=== PATIENT | male | born 1955 | race Caucasian/White ===

== ENCOUNTER 2019-05-21 08:00 | Inpatient (IN) ==
[2019-05-20 19:31] LABS: Basophils # (Auto) 0.02 K/mcL (0.00-0.30); Basophils % (Auto) 0.3 % (0.0-2.0); Eosinophils # (Auto) 0.08 K/mcL (0.00-0.70); Eosinophils % (Auto) 1.3 % (0.0-7.0); Granulocytes % (Auto) 62.1 % (38.0-78.0); Hematocrit 49.3 % (40.1-51.0); Hemoglobin 16.2 g/dL (13.7-17.5); Lymphocytes % (Auto) 27.9 % (15.5-49.0); Mean Cell Volume 85.6 fL (80.0-100.0); Mean Corpuscular HGB Conc 32.9 g/dL (31.0-36.0); Mean Platelet Volume 10.4 fL (7.4-10.4); Monocytes # (Auto) 0.51 K/mcL (0.10-0.90); Monocytes % (Auto) 8.4 % (1.0-12.0); Platelet Count 263 K/mcL (140-440); RBC 5.76 M/mcL (4.63-6.08); Red Cell Distribution Width 13.6 % (11.5-14.5); WBC 6.1 K/mcL (4.50-11.00)
[2019-06-11] MEDS ORDERED: IPRATROPIUM/ALBUTEROL 3 ML AMPUL.NEB NEB PRN ×2 (05:00→10:37)
[2019-06-11] MEDS ORDERED: 0.9 % SODIUM CHLORIDE 250 ML IV SCH (05:00)
[2019-06-11] MEDS ORDERED: SCOPOLAMINE 1 PATCH PATCH TOPICAL PRN (05:00)
[2019-06-11] MEDS ORDERED: cefOXitin 2 GM VIAL IV SCH (06:00)
[2019-06-11] MEDS ORDERED: BACITRACIN 50,000 UNIT VIAL IR ONE (07:25)
[2019-06-11] MEDS ORDERED: ALBUMIN HUMAN 37.5 GM/150 ML BAG IV ONE (07:36)
[2019-06-11] MEDS ORDERED: GLYCOPYRROLATE 0.2 MG/ML VIAL IV ONE (07:40)
[2019-06-11] MEDS ORDERED: PROPOFOL 200 MG/20 ML VIAL IV ONE (07:40)
[2019-06-11] MEDS ORDERED: DEXAMETHASONE 10 MG/ML VIAL IV ONE (07:40)
[2019-06-11] MEDS ORDERED: fentaNYL 100 MCG/2 ML VIAL IV ONE (07:40)
[2019-06-11] MEDS ORDERED: ALBUMIN HUMAN 25 GM/100 ML BAG IV ONE (07:40)
[2019-06-11] MEDS ORDERED: KETAMINE 100 MG/ML ML IV ONE (07:40)
[2019-06-11] MEDS ORDERED: TRANEXAMIC ACID 1,000 MG/10 ML VIAL IV ONE (07:40)
[2019-06-11] MEDS ORDERED: ROPIVACAINE HCL/PF 30 ML VIAL IJ ONE (07:40)
[2019-06-11] MEDS ORDERED: PHENYLEPHRINE 10 MG/ML VIAL IV ONE (07:40)
[2019-06-11] MEDS ORDERED: MIDAZOLAM 2 MG/2 ML VIAL IV ONE (07:40)
[2019-06-11] MEDS ORDERED: ONDANSETRON 4 MG/2 ML VIAL IV ONE (07:40)
[2019-06-11] MEDS ORDERED: LIDOCAINE HCL/PF 100 MG/5 ML SYRINGE IV ONE (07:40)
[2019-06-11] MEDS ORDERED: ROCURONIUM 10 MG/ML ML IV ONE (07:40)
[2019-06-11] MEDS ORDERED: ONDANSETRON 4 MG/2 ML VIAL IV PRN ×2 (10:02→10:37)
[2019-06-11] MEDS ORDERED: MAGNESIUM HYDROXIDE 30 ML ORAL.SUSP PO PRN (10:02)
[2019-06-11] MEDS ORDERED: HYDROcodone/APAP 10/325MG TABLET PO PRN (10:02)
--- NOTE | 2019-06-11 10:13 | Brief Operative Note ---
Date of procedure: 06/11/19 Pre-op diagnosis: prostate cancer Post-op diagnosis: same Procedure: RRP Grafts/Implants: No Anesthesia: GLMA Findings: see note Complications: none Surgeon: Clayton Garay Roll Hauler: Markie Delong Estimated blood loss (cc): 1,000 Specimens Removed/Pathology: other (prostate) Condition: stable Disposition: PACU
[2019-06-11] MEDS ORDERED: ACETAMINOPHEN 1,000 MG/100 ML BOTTLE IV ONE (10:37)
[2019-06-11] MEDS ORDERED: MEPERIDINE 25 MG/ML SYRINGE IV PRN (10:37)
[2019-06-11] MEDS ORDERED: LORazepam 2 MG/ML VIAL IV PRN (10:37)
--- NOTE | 2019-06-11 10:38 | Operative Note ---
DATE OF OPERATION: 06/11/2019 PREOPERATIVE DIAGNOSIS: Prostate cancer. POSTOPERATIVE DIAGNOSIS: Prostate cancer. PROCEDURE: Radical retropubic prostatectomy. SURGEON: Clayton Garay M.D. INSPECTOR METAL FABRICATING: Markie Delong M.D. INDICATION: The patient is a 64-year-old gentleman with biopsy-proven adenocarcinoma. This was Darin grade 3+4. His PSA at time of diagnosis was 5.6. He presents now for radical prostatectomy. PROCEDURE: The patient was identified and consent was signed. He was given general anesthesia, placed in supine position, prepped and draped in a standard fashion. A midline incision was made using a scalpel and carried down through the fascia with electrocautery. We were able to find the linea alba and open up the suprapubic area. At this point, we began dissection on the lymph nodes. Both left and right obturator nodes were removed. Limited resection was from the bifurcation of the iliac vessels, down to the endopelvic fascia, laterally to the body wall and medially to the bladder. These did not appear to be enlarged and sent to Pathology. We were then able to identify the bladder, and a backbleeding stitch was put in the prostate, and the endopelvic fascia was taken down with electrocautery. Three stitches were placed around the dorsal venous complex, and I was pleased with the overall appearance. An incision was then made, dividing the dorsal venous complex and this carried down to the level of the prostatic urethral junction. We were then able to see the catheter after opening the anterior urethra and four stitches were placed for the anastomosis. These were 2-0 Vicryl. We then grasped the catheter, brought this up for handle, and then divided the posterior wall of the bladder. We did not develop the plane along Denonvilliers fascia and the lateral pedicles were taken down. We attempted to spare the nerves on the right side and went wide on the left side. I was pleased with the overall appearance. We then were able to identify the ampulla of the vas deferens. These were divided. We then turned attention to the anterior bladder wall. This was divided sharply with scissors and the orifices were not damaged. We then removed the rest of the specimen. This was sent to Pathology. We inspected for bleeding and there was very little. We then closed the bladder in a racket-handle fashion with a 2-0 Vicryl. We did imbricating Lembert stitches to support the anastomosis. We then placed the anastomotic stitches at the 5 and 7 o'clock positions. Using a free needle, we were able to approximate the bladder neck down to the urethra and these were tied. We did have a good anastomosis, but there was slight leakage. We inspected for bleeding. There was none. We irrigated the wound. The muscle layer was reapproximated with a 3-0 Vicryl, and the fascia was closed with a #1 PDS. Pathfork were then used to close the skin. He was awoken and taken to the recovery room in stable condition. Estimated blood loss was 1000 mL. He did not receive any transfusions. Needle and sponge count were correct. THEA:landen Job ID: [id number] Doc ID: [id number] Clayton Garay MD
[2019-06-11] MEDS ORDERED: LACTATED RINGERS 1,000 ML IV SCH (10:45)
[2019-06-11] MEDS: fentaNYL 100 MCG/2 ML VIAL IV PRN ×4 (10:53→11:11)
[2019-06-11 11:22] LABS: Basophils # (Auto) 0.05 K/mcL (0.00-0.30); Basophils % (Auto) 0.4 % (0.0-2.0); Eosinophils # (Auto) 0.03 K/mcL (0.00-0.70); Eosinophils % (Auto) 0.2 % (0.0-7.0); Granulocytes % (Auto) 81.5 % (38.0-78.0); Hematocrit 41.4 % (40.1-51.0); Hemoglobin 13.4 g/dL (13.7-17.5); Lymphocytes # (Auto) 2.03 K/mcL (1.50-4.80); Lymphocytes % (Auto) 14.7 % (15.5-49.0); Mean Cell Volume 86.3 fL (80.0-100.0); Mean Corpuscular HGB Conc 32.4 g/dL (31.0-36.0); Monocytes # (Auto) 0.44 K/mcL (0.10-0.90); Monocytes % (Auto) 3.2 % (1.0-12.0); Platelet Count 264 K/mcL (140-440); Red Cell Distribution Width 13.5 % (11.5-14.5); WBC 13.8 K/mcL (4.50-11.00)
[2019-06-11] MEDS: HYDROmorphone 2 MG/ML VIAL IV PRN ×2 (11:23→11:35)
[2019-06-11] MEDS ORDERED: HYDROmorphone 2 MG/ML VIAL ONE (11:23)
[2019-06-11] MEDS: DEXTROSE 5%-1/2NS W/20MEQ KCL 1,000 ML IV SCH ×2 (12:25→20:40)
[2019-06-11] MEDS: 0.9 % SODIUM CHLORIDE 10 ML SYRINGE IV SCH ×2 (13:19→22:33)
[2019-06-11] MEDS: cefOXitin 2 GM VIAL IV SCH ×2 (14:32→22:33)
[2019-06-11] MEDS: ACETAMINOPHEN 650 MG/65 ML BOTTLE IV SCH ×2 (16:18→22:33)
[2019-06-12] MEDS: ACETAMINOPHEN 650 MG/65 ML BOTTLE IV SCH ×3 (04:58→17:17)
[2019-06-12] MEDS: 0.9 % SODIUM CHLORIDE 10 ML SYRINGE IV SCH ×3 (04:59→21:34)
[2019-06-12 06:41] LABS: Blood Urea Nitrogen 15 mg/dl (8-23); Calcium 7.9 mg/dl (8.6-10.4); Carbon Dioxide 22 mmol/L (22-30); Glomerular Filtration Rate 49; Glucose 133 mg/dL (70-105)
[2019-06-12 06:43] LABS: Chloride 109 mmol/L (96-108)
[2019-06-12 07:01] LABS: Hematocrit 32.9 % (40.1-51.0); Hemoglobin 10.5 g/dL (13.7-17.5); Mean Cell Volume 86.8 fL (80.0-100.0); Mean Corpuscular HGB Conc 31.9 g/dL (31.0-36.0); Mean Platelet Volume 10.1 fL (7.4-10.4); Platelet Count 206 K/mcL (140-440); RBC 3.79 M/mcL (4.63-6.08); Red Cell Distribution Width 13.7 % (11.5-14.5); WBC 10.7 K/mcL (4.50-11.00)
--- NOTE | 2019-06-12 07:28 | General Surgery Progress Note ---
Subjective Patient reports: still having pain, tolerating liquids well, no flatus Narrative: Note initiated : 06/12/19 at 7:27 am Service Date, if different from initiated Date: [] Patient: Marco Tanner 64 y/o M admitted on 06/11/19 for Radical Retropubic Prostatectomy. Chief Complaint: RRP POD #1 Patient feeling well slight lightheadedness. HCT = 32. will watch. tolerating clear liquids. will ambulate and transfer to floor. Objective Temp Pulse Resp BP Pulse Ox 98.7 F 70 16 108/53 93 06/12/19 04:00 06/12/19 04:00 06/12/19 04:00 06/12/19 04:00 06/12/19 04:00 - Additional Data Intake & Output - Last 24 hours: Intake & Output 06/10/19 06/11/19 06/12/19 06/13/19 05:59 05:59 05:59 05:59 Intake Total 2388 Output Total 3720 Balance -1332 Weight 188 lb 198 lb - Labs 06/12/19 04:48 06/12/19 04:48 Diabetes panel 06/12/19 Range/Units 04:48 Sodium 140 (133-145) mmol/L Potassium 4.2 (3.3-5.1) mmol/L Chloride 109 H (96-108) mmol/L Carbon Dioxide 22 (22-30) mmol/L BUN 15 (8-23) mg/dl Creatinine 1.5 H (0.7-1.2) mg/dl Glucose 133 H (70-105) mg/dL Calcium 7.9 L (8.6-10.4) mg/dl Calcium panel 06/12/19 Range/Units 04:48 Calcium 7.9 L (8.6-10.4) mg/dl Pituitary panel 06/12/19 Range/Units 04:48 Sodium 140 (133-145) mmol/L Potassium 4.2 (3.3-5.1) mmol/L Chloride 109 H (96-108) mmol/L Carbon Dioxide 22 (22-30) mmol/L BUN 15 (8-23) mg/dl Creatinine 1.5 H (0.7-1.2) mg/dl Glucose 133 H (70-105) mg/dL Calcium 7.9 L (8.6-10.4) mg/dl Adrenal panel 06/12/19 Range/Units 04:48 Sodium 140 (133-145) mmol/L Potassium 4.2 (3.3-5.1) mmol/L Chloride 109 H (96-108) mmol/L Carbon Dioxide 22 (22-30) mmol/L BUN 15 (8-23) mg/dl Creatinine 1.5 H (0.7-1.2) mg/dl Glucose 133 H (70-105) mg/dL Calcium 7.9 L (8.6-10.4) mg/dl Assessment and Plan - Time Spent With Patient Total time spent is greater than 50% in coordination of care (as documented) at patient's floor/unit and/or counseling patient:
[2019-06-12] MEDS: cefOXitin 2 GM VIAL IV SCH (08:07)
[2019-06-12] MEDS: DEXTROSE 5%-1/2NS W/20MEQ KCL 1,000 ML IV SCH ×4 (08:07→20:01)
[2019-06-12] MEDS: amLODIPine 10 MG TABLET PO SCH (08:09)
[2019-06-12] MEDS: OLMESARTAN MEDOXOMIL 20 MG TABLET PO SCH (08:09)
[2019-06-12] MEDS: HYDROcodone/APAP 10/325MG TABLET PO PRN ×4 (08:24→22:02)
[2019-06-12] MEDS ORDERED: OLMESARTAN MEDOXOMIL 20 MG TABLET PO SCH (09:00)
[2019-06-12] MEDS ORDERED: amLODIPine 10 MG TABLET PO SCH (09:00)
[2019-06-13] MEDS: 0.9 % SODIUM CHLORIDE 10 ML SYRINGE IV SCH ×3 (05:31→20:17)
[2019-06-13] MEDS: ACETAMINOPHEN 650 MG/65 ML BOTTLE IV SCH ×2 (05:37)
[2019-06-13] MEDS: DEXTROSE 5%-1/2NS W/20MEQ KCL 1,000 ML IV SCH (05:38)
[2019-06-13 06:43] LABS: Hematocrit 32.7 % (40.1-51.0); Hemoglobin 10.6 g/dL (13.7-17.5); Mean Cell Volume 88.6 fL (80.0-100.0); Mean Corpuscular HGB Conc 32.4 g/dL (31.0-36.0); Mean Platelet Volume 9.9 fL (7.4-10.4); Platelet Count 180 K/mcL (140-440); RBC 3.69 M/mcL (4.63-6.08); Red Cell Distribution Width 13.9 % (11.5-14.5); WBC 8.1 K/mcL (4.50-11.00)
[2019-06-13 07:13] LABS: Blood Urea Nitrogen 10 mg/dl (8-23); Calcium 8.2 mg/dl (8.6-10.4); Carbon Dioxide 24 mmol/L (22-30); Chloride 108 mmol/L (96-108); Glomerular Filtration Rate 64; Glucose 123 mg/dL (70-105)
[2019-06-13] MEDS: HYDROcodone/APAP 10/325MG TABLET PO PRN ×3 (07:24→17:29)
[2019-06-13] MEDS: MAGNESIUM HYDROXIDE 30 ML ORAL.SUSP PO PRN (07:24)
--- NOTE | 2019-06-13 09:22 | General Surgery Progress Note ---
Subjective Patient reports: feels better, no flatus, no bowel movement Narrative: Note initiated : 06/13/19 at 9:20 am Service Date, if different from initiated Date: [] Patient: Marco Tanner 64 y/o M admitted on 06/11/19 for Radical Retropubic Prostatectomy. Chief Complaint: POD #2 RRP patient improving. no flatus. ambulate in halls Labs stable. Will switch to PO meds. Objective Temp Pulse Resp BP Pulse Ox 98.7 F 82 24 H 143/75 90 06/13/19 07:56 06/13/19 07:56 06/13/19 07:56 06/13/19 07:56 06/13/19 07:56 - Additional Data Intake & Output - Last 24 hours: Intake & Output 06/11/19 06/12/19 06/13/19 06/14/19 05:59 05:59 05:59 05:59 Intake Total 2388 4417 65 Output Total 3720 4965 Balance -1332 -548 65 Weight 188 lb 198 lb 200 lb 4 oz - Labs 06/13/19 05:38 06/13/19 05:38 Diabetes panel 06/13/19 Range/Units 05:38 Sodium 141 (133-145) mmol/L Potassium 3.9 (3.3-5.1) mmol/L Chloride 108 (96-108) mmol/L Carbon Dioxide 24 (22-30) mmol/L BUN 10 (8-23) mg/dl Creatinine 1.2 (0.7-1.2) mg/dl Glucose 123 H (70-105) mg/dL Calcium 8.2 L (8.6-10.4) mg/dl Calcium panel 06/13/19 Range/Units 05:38 Calcium 8.2 L (8.6-10.4) mg/dl Pituitary panel 06/13/19 Range/Units 05:38 Sodium 141 (133-145) mmol/L Potassium 3.9 (3.3-5.1) mmol/L Chloride 108 (96-108) mmol/L Carbon Dioxide 24 (22-30) mmol/L BUN 10 (8-23) mg/dl Creatinine 1.2 (0.7-1.2) mg/dl Glucose 123 H (70-105) mg/dL Calcium 8.2 L (8.6-10.4) mg/dl Adrenal panel 06/13/19 Range/Units 05:38 Sodium 141 (133-145) mmol/L Potassium 3.9 (3.3-5.1) mmol/L Chloride 108 (96-108) mmol/L Carbon Dioxide 24 (22-30) mmol/L BUN 10 (8-23) mg/dl Creatinine 1.2 (0.7-1.2) mg/dl Glucose 123 H (70-105) mg/dL Calcium 8.2 L (8.6-10.4) mg/dl Assessment and Plan - Time Spent With Patient Total time spent is greater than 50% in coordination of care (as documented) at patient's floor/unit and/or counseling patient:
[2019-06-13] MEDS: amLODIPine 10 MG TABLET PO SCH (09:34)
[2019-06-13] MEDS: OLMESARTAN MEDOXOMIL 20 MG TABLET PO SCH (09:34)
[2019-06-13] MEDS: ONDANSETRON 4 MG/2 ML VIAL IV PRN ×2 (12:33→18:22)
[2019-06-13] MEDS: SIMETHICONE 80 MG TAB.CHEW CHEWED PRN ×2 (17:09→23:01)
[2019-06-13] MEDS: CALCIUM CARBONATE 500 MG TAB.CHEW CHEWED PRN (20:16)
[2019-06-14] MEDS: ONDANSETRON 4 MG/2 ML VIAL IV PRN ×2 (01:34→10:05)
[2019-06-14] MEDS: HYDROcodone/APAP 10/325MG TABLET PO PRN (01:34)
[2019-06-14] MEDS: CALCIUM CARBONATE 500 MG TAB.CHEW CHEWED PRN (04:27)
[2019-06-14] MEDS: 0.9 % SODIUM CHLORIDE 10 ML SYRINGE IV SCH ×3 (04:28→20:58)
[2019-06-14] MEDS ORDERED: 0.9 % SODIUM CHLORIDE 500 ML IV ONE ×2 (08:05→12:04)
[2019-06-14] MEDS: DEXTROSE 5%-LR 1,000 ML IV SCH ×2 (09:03→17:36)
--- NOTE | 2019-06-14 09:10 | General Surgery Progress Note ---
Subjective Patient reports: still having pain, no flatus, nausea Narrative: Note initiated : 06/14/19 at 9:08 am Service Date, if different from initiated Date: [] Patient: Marco Tanner 64 y/o M admitted on 06/11/19 for Radical Retropubic Prostatectomy. Chief Complaint: POD #3 patient feels bloated. very little flatus. positive ileus. will make npo. pepcid and reglan check labs in am tylenol for pain. will follow. Objective Temp Pulse Resp BP Pulse Ox 98.6 F 83 13 121/73 95 06/14/19 06:48 06/14/19 06:48 06/14/19 06:48 06/14/19 06:48 06/14/19 06:48 - Additional Data Intake & Output - Last 24 hours: Intake & Output 06/12/19 06/13/19 06/14/19 06/15/19 05:59 05:59 05:59 05:59 Intake Total 2388 4417 1737 500 Output Total 3720 4965 1770 Balance -1332 -548 -33 500 Weight 198 lb 200 lb 4 oz 199 lb - Labs 06/13/19 05:38 06/13/19 05:38 Assessment and Plan - Time Spent With Patient Total time spent is greater than 50% in coordination of care (as documented) at patient's floor/unit and/or counseling patient:
[2019-06-14] MEDS: amLODIPine 10 MG TABLET PO SCH (09:42)
[2019-06-14] MEDS: OLMESARTAN MEDOXOMIL 20 MG TABLET PO SCH (09:42)
[2019-06-14] MEDS: FAMOTIDINE 20 MG TABLET PO SCH ×2 (10:01→20:56)
[2019-06-14] MEDS: METOCLOPRAMIDE 10 MG TABLET PO SCH ×2 (10:01→17:42)
[2019-06-14] MEDS ORDERED: 0.9 % SODIUM CHLORIDE 500 ML IV SCH (12:15)
[2019-06-14 13:30] LABS: Basophils # (Auto) 0.03 K/mcL (0.00-0.30); Basophils % (Auto) 0.3 % (0.0-2.0); Eosinophils % (Auto) 1.9 % (0.0-7.0); Granulocytes % (Auto) 69.7 % (38.0-78.0); Mean Cell Volume 89.4 fL (80.0-100.0); Mean Corpuscular HGB Conc 31.6 g/dL (31.0-36.0); Mean Platelet Volume 9.9 fL (7.4-10.4); Monocytes # (Auto) 0.96 K/mcL (0.10-0.90); Monocytes % (Auto) 9.1 % (1.0-12.0); Platelet Count 280 K/mcL (140-440); RBC 4.25 M/mcL (4.63-6.08); Red Cell Distribution Width 13.4 % (11.5-14.5); WBC 10.5 K/mcL (4.50-11.00)
[2019-06-14 13:38] LABS: Blood Urea Nitrogen 15 mg/dl (8-23); Calcium 8.9 mg/dl (8.6-10.4); Carbon Dioxide 29 mmol/L (22-30); Chloride 102 mmol/L (96-108); Glomerular Filtration Rate 53; Glucose 149 mg/dL (70-105)
[2019-06-14] MEDS: ACETAMINOPHEN 650 MG/65 ML BOTTLE IV SCH ×3 (13:42→23:41)
[2019-06-14] MEDS ORDERED: FUROSEMIDE 20 MG/2 ML VIAL IV ONE (14:28)
[2019-06-14] MEDS ORDERED: METOCLOPRAMIDE 10 MG TABLET PO SCH (17:00)
[2019-06-14] MEDS ORDERED: FAMOTIDINE 20 MG TABLET PO SCH (21:00)
[2019-06-15] MEDS: ONDANSETRON 4 MG/2 ML VIAL IV PRN
[2019-06-15] MEDS: DEXTROSE 5%-LR 1,000 ML IV SCH ×4 (02:40→23:46)
[2019-06-15] MEDS: ACETAMINOPHEN 650 MG/65 ML BOTTLE IV SCH ×4 (06:01→23:43)
[2019-06-15] MEDS: 0.9 % SODIUM CHLORIDE 10 ML SYRINGE IV SCH ×3 (06:02→20:57)
[2019-06-15 06:42] LABS: Basophils # (Auto) 0.02 K/mcL (0.00-0.30); Basophils % (Auto) 0.3 % (0.0-2.0); Eosinophils # (Auto) 0.19 K/mcL (0.00-0.70); Eosinophils % (Auto) 2.6 % (0.0-7.0); Granulocytes % (Auto) 72.1 % (38.0-78.0); Hematocrit 34.5 % (40.1-51.0); Hemoglobin 10.9 g/dL (13.7-17.5); Lymphocytes # (Auto) 1.09 K/mcL (1.50-4.80); Lymphocytes % (Auto) 14.9 % (15.5-49.0); Mean Cell Volume 88.7 fL (80.0-100.0); Mean Corpuscular HGB Conc 31.6 g/dL (31.0-36.0); Mean Platelet Volume 9.7 fL (7.4-10.4); Monocytes # (Auto) 0.74 K/mcL (0.10-0.90); Monocytes % (Auto) 10.1 % (1.0-12.0); Platelet Count 255 K/mcL (140-440); RBC 3.89 M/mcL (4.63-6.08); Red Cell Distribution Width 13.3 % (11.5-14.5); WBC 7.3 K/mcL (4.50-11.00)
[2019-06-15 07:01] LABS: Blood Urea Nitrogen 15 mg/dl (8-23); Carbon Dioxide 29 mmol/L (22-30); Chloride 102 mmol/L (96-108); Glomerular Filtration Rate 53; Glucose 161 mg/dL (70-105)
[2019-06-15] MEDS ORDERED: FUROSEMIDE 20 MG/2 ML VIAL IV ONE (07:19)
--- NOTE | 2019-06-15 07:19 | General Surgery Progress Note ---
Subjective Patient reports: bowel movement Narrative: Note initiated : 06/15/19 at 7:16 am Service Date, if different from initiated Date: [] Patient: Marco Tanner 64 y/o M admitted on 06/11/19 for Radical Retropu bic Prostatectomy. Chief Complaint: POD #4 Patient had small BM but is still distended. Wound clean and dry. ARNOLD removed. Slight crackles in lungs. labs look good. will ambulate today, ileus should resolve. no n/v. lasix today. Objective Temp Pulse Resp BP Pulse Ox 98.6 F 81 16 117/68 91 06/15/19 02:41 06/15/19 02:41 06/15/19 02:41 06/15/19 02:41 06/15/19 02:41 - Additional Data Intake & Output - Last 24 hours: Intake & Output 06/13/19 06/14/19 06/15/19 06/16/19 05:59 05:59 05:59 05:59 Intake Total 4412 1737 3245 Output Total 4901 1770 1156 Balance -548 -33 2089 Weight 200 lb 4 oz 199 lb 198 lb 8 oz - Labs 06/15/19 05:33 06/15/19 05:33 Diabetes panel 06/14/19 06/15/19 Range/Units 12:20 05:33 Sodium 140 139 (133-145) mmol/L Potassium 3.8 4.0 (3.3-5.1) mmol/L Chloride 102 102 (96-108) mmol/L Carbon Dioxide 29 29 (22-30) mmol/L BUN 15 15 (8-23) mg/dl Creatinine 1.4 H 1.4 H (0.7-1.2) mg/dl Glucose 149 H 161 H (70-105) mg/dL Calcium 8.9 9.0 (8.6-10.4) mg/dl Calcium panel 06/14/19 06/15/19 Range/Units 12:20 05:33 Calcium 8.9 9.0 (8.6-10.4) mg/dl Pituitary panel 06/14/19 06/15/19 Range/Units 12:20 05:33 Sodium 140 139 (133-145) mmol/L Potassium 3.8 4.0 (3.3-5.1) mmol/L Chloride 102 102 (96-108) mmol/L Carbon Dioxide 29 29 (22-30) mmol/L BUN 15 15 (8-23) mg/dl Creatinine 1.4 H 1.4 H (0.7-1.2) mg/dl Glucose 149 H 161 H (70-105) mg/dL Calcium 8.9 9.0 (8.6-10.4) mg/dl Adrenal panel 06/14/19 06/15/19 Range/Units 12:20 05:33 Sodium 140 139 (133-145) mmol/L Potassium 3.8 4.0 (3.3-5.1) mmol/L Chloride 102 102 (96-108) mmol/L Carbon Dioxide 29 29 (22-30) mmol/L BUN 15 15 (8-23) mg/dl Creatinine 1.4 H 1.4 H (0.7-1.2) mg/dl Glucose 149 H 161 H (70-105) mg/dL Calcium 8.9 9.0 (8.6-10.4) mg/dl Assessment and Plan - Time Spent With Patient Total time spent is greater than 50% in coordination of care (as documented) at patient's floor/unit and/or counseling patient:
[2019-06-15] MEDS: METOCLOPRAMIDE 10 MG TABLET PO SCH ×2 (07:41→18:04)
[2019-06-15] MEDS: OLMESARTAN MEDOXOMIL 20 MG TABLET PO SCH (08:46)
[2019-06-15] MEDS: amLODIPine 10 MG TABLET PO SCH (08:46)
[2019-06-15] MEDS: FAMOTIDINE 20 MG TABLET PO SCH ×2 (08:46→20:57)
[2019-06-15] MEDS ORDERED: ALPRAZolam 0.5 MG TABLET PO PRN (16:16)
[2019-06-16] MEDS: ACETAMINOPHEN 650 MG/65 ML BOTTLE IV SCH (05:59)
[2019-06-16] MEDS: 0.9 % SODIUM CHLORIDE 10 ML SYRINGE IV SCH ×2 (06:00→18:58)
[2019-06-16] MEDS: amLODIPine 10 MG TABLET PO SCH (08:16)
[2019-06-16] MEDS: FAMOTIDINE 20 MG TABLET PO SCH (08:16)
[2019-06-16] MEDS: METOCLOPRAMIDE 10 MG TABLET PO SCH (08:17)
[2019-06-16] MEDS: OLMESARTAN MEDOXOMIL 20 MG TABLET PO SCH (08:17)
[2019-06-16] MEDS ORDERED: ACETAMINOPHEN 500 MG TABLET PO PRN (09:59)
[2019-06-16] MEDS: IBUPROFEN 800 MG TABLET PO PRN ×2 (10:28→14:12)
[2019-06-16] MEDS: MAGNESIUM HYDROXIDE 30 ML ORAL.SUSP PO PRN (11:10)
[2019-06-16] MEDS: DEXTROSE 5%-LR 1,000 ML IV SCH (11:33)
--- NOTE | 2019-06-16 12:01 | Surgical Pathology Report ---
HISTOLOGY SPECIMEN MICROSCOPIC DIAGNOSIS SPECIMEN A - RIGHT SIDE OBTURATOR LYMPH NODES, EXCISION: -- NO METASTATIC CARCINOMA IDENTIFIED IN THREE LYMPH NODES (0/3). SPECIMEN B - LEFT SIDE OBTURATOR LYMPH NODES, EXCISION: -- NO METASTATIC CARCINOMA IDENTIFIED IN TWO LYMPH NODES (0/2). SPECIMEN C - PROSTATE, RADICAL PROSTATECTOMY: -- PROSTATIC ADENOCARCINOMA, DARIN GRADE 3+4 (GRADE GROUP 2) INVOLVING 5-10% OF TISSUE IN BILATERAL PROSTATE. -- PERINEURAL INVASION: PRESENT. -- MARGINS: NARROWLY FREE OF CARCINOMA; CARCINOMA APPROACHES TO WITHIN LESS THAN 0.1 mm OF LEFT, POSTERIOR PROSTATE. -- LYMPH/VASCULAR INVASION: NOT IDENTIFIED. -- INVOLVEMENT OF SEMINAL VESICLE: NOT IDENTIFIED. -- INVOLVEMENT OF VAS DEFERENS: NOT IDENTIFIED. -- EXTRAPROSTATIC EXTENSION: NOT IDENTIFIED. -- PATHOLOGIC STAGE: pT2 N0. -- BACKGROUND PROSTATE WITH ACTIVE PROSTATITIS, NODULAR STROMAL HYPERTROPHY AND CYSTIC GLANDULAR DILATION. (EBD:adj) SUMMARY CANCER DATA: Procedure: Radical prostatectomy with bilateral obturator lymph node sampling. Prostate Size: 49 grams, 6 x 4.5 x 3.5 cm. Lymph Node Sampling: Bilateral obturator. Histologic Grade: Ramsay Pattern Primary Pattern: 3. Secondary Pattern: 4. Tertiary Pattern: Not applicable. Total Darin Score: 7 (Grade group 2). Tumor Quantitation: Proportion (percentage) of prostate involved by tumor: 5-10% Tumor size: 3.8 cm in greatest dimension (involving five of six apical to base sections). Extraprostatic Extension: Not identified. Seminal Vesicle Invasion: Not identified. Surgical Margins: Free of carcinoma. Carcinoma approaches to within 0.1 mm of left posterior prostate. Treatment Effect: Not applicable. Lymph/Vascular Invasion: Not identified. Perineural invasion: Not identified. Pathologic Stage: pT2 N0. Additional Pathologic Findings: Active prostatitis, nodular stromal hypertrophy and cystic glandular dilation. GROSS DESCRIPTION Specimen A: Received in formalin labeled right sided obturator nodes, are multiple fragments of lobulated red-pink soft tissue with an aggregate measurement of 4.5 x 3.5 x 1.8 cm. Within the fatty tissue are three candidate nodes ranging in size from 1.4 x 0.4 x 0.3 cm up to 2 x 0.9 x 0.4 cm. The candidate lymph nodes are submitted in two cassettes: A1 - largest lymph node, bisected; A2 - smaller lymph nodes, one inked black. Specimen B: Received in formalin labeled left sided obturator node, is a house-yellow lobulated soft tissue mass that measures 4.3 x 2.3 x 1.1 cm. Two candidate lymph nodes are identified within the fat. The first measures 2.1 x 1.1 x 0.7 cm. The second measures 1.5 x 0.3 x 0.2 cm. The larger lymph node is inked black and bisected. The smaller lymph node is submitted intact. These lymph nodes are submitted entirely in one cassette. (EBD:adj) Specimen C: Received in formalin labeled prostate, is a prostatectomy specimen weighing 49 grams and measuring 6 cm [id number] by 4.5 cm apex to base by 3.5 cm anterior to posterior. There are seminal vesicles attached overall measuring 3 x 2.5 x 0.8 cm. Also present are two separate segments of possible seminal vesicles, measuring 3 x 2 x 1 cm and 3 x 2.5 x 1.5 cm. The specimen is inked blue - left and orange - right. The specimen is sectioned from apex to base into six slices (slice 1 - apex, slice 6 - base). The majority of the specimen is submitted as follows: C1-C4 - slice 1, transverse sections from left to right serially sectioned; C5 - slice 2 left; C6 - slice 2 mid; C7 - slice 2 right; C8-C9 - slice 3 left anterior and posterior respectively; C10-C11 - slice 3 anterior and posterior respectively; C12-C13 - slice 4 left anterior and posterior respectively; C14-C15 - slice 4 right anterior and posterior respectively; C16-C17 - slice 5 left anterior and posterior respectively; C18 - slice 5 right anterior and posterior respectively; C20-C24 - sections of slice 6 from left to right; C25 - margins of attached seminal vesicles and additional cross section of the two separate fragments received in the container. (RLF:adj) Electronically Signed by: Maida Harris M.D.
--- NOTE | 2019-06-16 15:38 | Discharge Plan ---
Discharge Plan - Patient/Caregiver Discharge Instructions Activity: increase activity as tolerated Diet: Regular Diet Additional Instructions: no heavy lifting start cipro 2 days prior to catheter removal Prescriptions: Ciprofloxacin [Cipro] 500 mg PO BID #14 tab Transmission Status: Received by [facility] Ibuprofen [Motrin] 800 mg PO TIDP PRN #90 tab PRN Reason: Pain Level > 6 Transmission Status: Received by [facility] HYDROcodone/APAP 10/325MG [[place] 10-325Mg] 1 - 2 tab PO Q6H PRN #20 tab PRN Reason: Pain Transmission Status: Received by [facility] - Follow up Plan Follow up with: Clayton Garay MD [Physician] - 06/26/19 10:45 am Disposition: Home, Self-Care Prognosis: Good Rehab Potential: Good
--- NOTE | 2019-06-16 16:31 | General Surgery Progress Note ---
Subjective Patient reports: feels better, tolerating a regular diet, flatus, bowel movement Narrative: Note initiated : 06/16/19 at 4:30 pm Service Date, if different from initiated Date: [] Patient: Marco Tanner 64 y/o M admitted on 06/11/19 for Radical Retropubic Prostatectomy. Chief Complaint: POD #4 Patient improved.. tolerating regular diet. will d/c to home. Objective Temp Pulse Resp BP Pulse Ox 98.4 F 86 18 129/72 90 06/16/19 12:00 06/16/19 12:00 06/16/19 08:00 06/16/19 12:00 06/16/19 12:00 - Additional Data Intake & Output - Last 24 hours: Intake & Output 06/14/19 06/15/19 06/16/19 06/17/19 05:59 05:59 05:59 05:59 Intake Total 1737 3245 3140 1158 Output Total 1770 1156 1175 Balance -33 2088 1965 1158 Weight 199 lb 198 lb 8 oz 203 lb 9.6 oz - Labs 06/15/19 05:33 06/15/19 05:33 Assessment and Plan - Time Spent With Patient Total time spent is greater than 50% in coordination of care (as documented) at patient's floor/unit and/or counseling patient:
--- NOTE | 2019-06-16 16:46 | Discharge Summary ---
DATE OF ADMISSION: 06/11/2019 DATE OF DISCHARGE: DATE OF ADMISSION: 06/11/2019 DATE OF DISCHARGE: 06/16/2019 ADMITTING DIAGNOSIS: Prostate cancer. DISCHARGE DIAGNOSIS: Prostate cancer. PROCEDURE: Radical retropubic prostatectomy. PATHOLOGY: Final pathology was Darin grade 3+4 adenocarcinoma involving 5 to 10% of tissue and bilateral prostate, positive perineural involvement. Margins were negative. Lymph nodes were negative. Therefore, pT2N0. COMPLICATIONS: None. HISTORY OF PRESENT ILLNESS: The patient is a 64-year-old gentleman who did have an increased PSA of 5.6. Biopsy did confirm adenocarcinoma and he presented for radical prostatectomy. For the rest of history and physical, please see dictation. HOSPITAL COURSE: The patient was admitted and underwent surgery without difficulty. His hematocrit decreased to a level of 32 but has remained stable. He was advanced through his diet, but by postop day #2 he did have an ileus, and we put him back n.p.o. and this resolved. He is now tolerating a regular diet. His pain medication has been switched to Tylenol and ibuprofen which seems to be controlling his pain. His wound is clean and dry. ARNOLD drain was removed. At this time, he is ready for discharge to home. Discharge meds include his preop meds, plus the pain medications as noted above, and also Cipro 500 mg that he will take around the time the catheter is removed. THEA:landen Job ID: [id number] Doc ID: [id number] Clayton Garay MD
== END 2019-06-16 17:15 | disposition home or self-care (01) | DRG 707 ==
LOC: ICU 06-11 04:56 → MEDSUR 06-12 16:12